=== PATIENT | female | born 1995 | race African-American/Black ===

== ENCOUNTER 2016-09-02 15:42 | Emergency (ER) | payer OTHER ==
[~2016-09-02] VITALS: Ht 157.5 cm; Wt 74.0 kg
[2016-09-02 16:08] VITALS: BP 123/75
[2016-09-02] MEDS ORDERED: DIPHENHYDRAMINE 50MG CAPSULE PO ONE (17:30)
== END 2016-09-02 18:07 | disposition home or self-care (01) ==
LOC: ER 17:36
DX: S41.0 Open wound of shoulder (principal); S21.152A Open bite of left front wall of thorax without penetration into thoracic cavity, initial encounter; R53.1 Weakness; R42 Dizziness and giddiness; J45.909 Unspecified asthma, uncomplicated; F41.9 Anxiety disorder, unspecified; W57.XXXA Bitten or stung by nonvenomous insect and other nonvenomous arthropods, initial encounter; Y93.89 Activity, other specified; Y99.8 Other external cause status; Y92.69 Other specified industrial and construction area as the place of occurrence of the external cause
CPT/HCPCS: 99282; Q0163